=== PATIENT | female | born 2005 | race Caucasian/White ===

== ENCOUNTER 2025-05-09 11:45 | Outpatient (CLI) | payer OTHER, SELFPAY | END 2025-05-09 11:46 | disposition home or self-care (01) | LOC: NFLDREF 05-10 13:10 | PROVIDERS: Visit Provider Obstetrics & Gynecology | DX: R39.15 Urgency of urination (principal); Z11.3 Encounter for screening for infections with a predominantly sexual mode of transmission | CPT/HCPCS: 87086; 87491; 87591 ==